=== PATIENT | male | born 1990 | race Two or more races ===

== ENCOUNTER 2021-05-13 04:01 | Emergency (ER) | payer MEDICAID, OTHER ==
[~2021-05-13] VITALS: Ht 167.6 cm; Wt 90.7 kg
--- NOTE | 2021-05-13 04:12 | NUR ---
TONIE 839 FROM [facility] FOR C/O WOKE UP WITH SORETHROAT AND DIZZINESS. PATIENT ALERT AND ORIENTED X3. AMBULATORY WITH NON LABORED BREATHING IN BED 11 ON MONITOR AWAITING MD TOBAR.
[2021-05-13] MEDS ORDERED: AMOXICILLIN TRIHYDRATE 250 MG CAPSULE ONE (04:35)
[2021-05-13] MEDS: AMOXICILLIN TRIHYDRATE 500 MG CAPSULE PO ONE (04:37)
[2021-05-13] MEDS ORDERED: AMOX500C2 PO (05:32)
[2021-05-13] MEDS: IV NS 0.9% 1,000 ML BAG IV ONE (05:33)
[2021-05-13] MEDS ORDERED: LORAZEPAM 1 MG TABLET ONE (05:34)
[2021-05-13] MEDS: LORAZEPAM 1 MG TABLET PO ONE (05:35)
[2021-05-13 05:46] LABS: BASOPHILS % (AUTO) 0.4 % (0.0-2.0); EOSINOPHILS % (AUTO) 0.9 % (0.0-6.0); HEMATOCRIT 42 % (39-51); HEMOGLOBIN 14.1 g/dL (13.5-17.5); LYMPHOCYTES # (AUTO) 1.4 K/uL (0.8-4.8); LYMPHOCYTES % (AUTO) 12.4 % (20.0-44.0); MEAN CORPUSCULAR HGB CONC 34 g/dl (31.0-36.0); MEAN CORPUSCULAR VOLUME 89 fL (80-96); MONOCYTES % (AUTO) 9.2 % (2.0-12.0); NEUTROPHILS # (AUTO) 8.5 K/uL (1.8-8.9); NEUTROPHILS % (AUTO) 77.1 % (43.0-81.0); PLATELET COUNT (AUTO) 190 K/uL (150-450); RED BLOOD CELL COUNT(AUTO) 4.77 MIL/uL (4.5-6.0)
[2021-05-13 05:54] LABS: CALCIUM, SERUM 8.7 mg/dL (8.5-10.1); CREATININE 1.1 mg/dL (0.6-1.3)
--- NOTE | 2021-05-13 07:03 | NUR ---
FAXED CLININCALS AND FACESHEET TO [facility] INTAKE
--- NOTE | 2021-05-13 07:40 | NUR ---
URINE COLLECTED AND SENT TO LAB
--- NOTE | 2021-05-13 09:59 | NUR ---
PER MELIA OF [facility], NURSE WILL LOOK AT THE CLINICALS FIRST THEN WILL GIVE [facility] TRANSFER INFO TO [facility]
--- NOTE | 2021-05-13 10:45 | NUR ---
F/U WITH [facility], SPOKE TO ALESIA, NURSE SUPV STILL NEEDS TO LOOK AT PT CHART
--- NOTE | 2021-05-13 12:25 | NUR ---
PT ACCEPTED TO [facility] [address]. PLS. CALL [phone] FOR REPORT AND [facility] WILL PROVIDE TRANSPORTATION.
--- NOTE | 2021-05-13 12:55 | NUR ---
[facility] TRANSPORT AT BEDSIDE FOR [employer].
[2021-05-13 12:57] VITALS: BP 122/71
== END 2021-05-13 12:58 ==
LOC: ER 04:03
DX: J03.90 Acute tonsillitis, unspecified (principal); Z20.822 Contact with and (suspected) exposure to COVID-19; R00.0 Tachycardia, unspecified; F25.9 Schizoaffective disorder, unspecified; F17.200 Nicotine dependence, unspecified, uncomplicated; F15.10 Other stimulant abuse, uncomplicated
CPT/HCPCS: 36415; 80048; 80307; 80320; 85025; 87070; 87426; 87880; 96360; 99285; C9803; J7030; 86403-TC; G0480